=== PATIENT | female | born 1980 | race Caucasian/White ===

== ENCOUNTER 2020-07-30 11:43 | Emergency (ER) | payer OTHER ==
[~2020-07-30] VITALS: Ht 167.6 cm; Wt 50.0 kg
[2020-07-30 14:10] VITALS: BP 109/70
== END 2020-07-30 14:51 | disposition home or self-care (01) ==
LOC: EMS 11:49
DX: T19.2XXA Foreign body in vulva and vagina, initial encounter (principal); F17.210 Nicotine dependence, cigarettes, uncomplicated; F12.90 Cannabis use, unspecified, uncomplicated; X58.XXXA Exposure to other specified factors, initial encounter; Y93.89 Activity, other specified; Y92.89 Other specified places as the place of occurrence of the external cause; Y99.8 Other external cause status
CPT/HCPCS: 74022; 74176; 99284; Z7502